=== PATIENT | female | born 1960 | race Caucasian/White ===

== ENCOUNTER 2023-03-03 02:27 | Day surgery (SDC) | payer BC, SELFPAY ==
[2023-02-22 13:58] VITALS: BMI 34.8
--- NOTE | 2023-02-22 14:00 | PC.NURSE ---
Report to the Outpatient Waiting Room, entrance under the green pavilion located off [facility], at time _0600_ on date _[id number]_. Planned Procedure Time: _0730_. Time changes happen often and if your time is changed the preop area will call you the afternoon before. - You and your visitor will be asked to self-screen and do not enter if you have any COVID symptoms. - A mask is optional within the hospital at this time. Patients may have clear liquids (water, carbonated beverages, clear teas, apple juice) until 3 hours prior to surgery with a maximum of 20 ounces. - No food from midnight until time of surgery Take the following medications with a SIP of water the morning of surgery: __None DO NOT STOP ANY OF YOUR OTHER PRESCRIPTION MEDICATIONS PRIOR TO SURGERY ?EXCEPT THE FOLLOWING Medications to discontinue per physician Stop Naproxen 02-24-2023, Stop fish oil [id number] Please no make-up, nail italian, hairspray, perfume, deodorant, or body powder the day of surgery. No jewelry (including any body piercings) or valuables the day of surgery, leave them at home. Please take a shower or bath the night before, or the morning of, surgery with an antibacterial soap. Wear comfortable, loose fitting clothing. - Jewelry must be removed prior to entering the operating room. Rings and piercings that are not removed may be cut off. - The hospital will not accept responsibility for valuables. - Please leave all valuables, including medications, at home the day of surgery. If you are going home after surgery, a licensed hire car driver must drive you home. - NO public transportation without another adult if you receive anesthesia. - We recommend that an adult stay with you for 24 hours following discharge. - We also recommend that you do not drive, make important decision, drink alcoholic beverages, or take any drugs that were not prescribed by your health care provider for at least 24 hours after your discharge time. Follow any additional instructions given to you from your surgeon. If you or anyone in your household have experienced Covid symptoms in the past week, please notify your surgeon or the nurse liaison at the phone number below for possible testing. Telephone instructions given to __Patient___and asked if any additional questions and then verbalized understanding. Patient advised to call surgeon office or pre surgery nurse liaison [phone] if any additional questions.
--- NOTE | 2023-03-02 12:23 | PM.IMHP ---
H&P: HPI History of Present Illness Date/Time: 03/02/23 12:23 Chief Complaint: Right foot pain Narrative: 63-year-old with right hallux rigidus and a toe stiffness. Pain with weight-bearing and shoe wear. Pain with daily activity. Unrelieved with cortisone injection, inserts and accommodative shoes. Presents for operative treatment. Review of Systems Constitutional: Constitutional: Denies fever(s) Eyes: Eyes: Denies blurry vision ENT: Reports Normal hearing present Cardiovascular: Cardiovascular: Denies chest pain and Denies dyspnea Respiratory: Respiratory: Denies dyspnea and Denies wheezing Gastrointestinal: Gastrointestinal: Denies abdominal pain Genitourinary: Genitourinary: Denies urinary urgency Musculoskeletal: Musculoskeletal: Reports as per HPI and Denies numbness Integumentary/Breasts: Skin/Breast: Denies changing lesions and Denies sores Neurologic: Reports Normal hearing present, Denies behavioral changes, Denies confusion, Denies numbness and Denies convulsions Psychiatric: Psychiatric: Denies behavioral changes, Denies confusion and Denies hallucinations Endocrine: Endocrine: Denies heat intolerance Hematologic/Lymphatic: Hematologic/Lymphatic: Denies easy bleeding Allergic/Immunologic: Allergic/Immunologic: Denies wheezing PMFSH Past Medical History Medical History Bilateral carpal tunnel syndrome (~2020) Hallux rigidus of right foot Kidney stones (~2020) Surgical History Surgical History H/O: hysterectomy (~2001) Hx of cholecystectomy (~2021) Social History Social History Smoking status: Never smoker Alcohol intake: current Drinks per week: 1 Substance use: never Living arrangements: with family Gender identity (if verbalized by the patient): Female Spiritual care concerns: No Meds Home Medications and Allergies Home Medications Medication Instructions Recorded Confirmed Type fluticasone propionate 50 1 spray intranasal BID 12/01/22 02/22/23 History mcg/actuation nasal spray,suspension mecobalamin (vitamin B12) 5,000 5,000 mcg PO DAILY 12/01/22 02/22/23 History mcg chewable tablet montelukast 10 mg tablet 10 mg PO DAILY 12/01/22 02/22/23 History (Singulair) pantoprazole 40 mg tablet,delayed 40 mg PO QAM 12/01/22 02/22/23 History release cetirizine 10 mg tablet (Zyrtec) 10 mg PO DAILY 02/22/23 02/22/23 History naproxen sodium 220 mg tablet 220 mg PO DAILY 02/22/23 02/22/23 History (Aleve) omega-3 fatty acids 2,000 mg PO DAILY 02/22/23 02/22/23 History Allergies Allergy/AdvReac Type Severity Reaction Status Date / Time sesame oil Allergy Rash Verified 02/22/23 13:44 Exam Const: Limitations: no limitations HENMT: Head: normal to inspection Ears: hearing grossly normal bilaterally Face/Nose/Sinus: Normal external nose present and normal facial exam Face and sinus: normal facial exam Mouth: Yes moist mucous membranes Teeth and gingiva: dentition normal Eyes: General: appearance normal, both eyes and all related structures Pupils: Equal, round and reactive pupils present EOM: EOMs intact bilaterally Neck: Neck: normal visual inspection Chest: Chest palpation & inspection: normal inspection of the chest Resp: Effort & Inspection: normal respiratory effort and able to speak in complete sentences Cardio: Jugular venous distension: no JVD Neuro: Cranial nerves: Yes Equal, round and reactive pupils present Extrem: Right upper extremity: normal to inspection Left upper extremity: normal to inspection Right lower extremity: ankle Details: normal to inspection, normal ROM ( dorsiflexion 5?, plantar flexion 45?, inversion 20?, eversion 10?) and other ( good stability all directions); no tenderness, no swelling and no ecchymosis and foot Details: abnorma
[2023-03-03] VITALS (9 sets, daily range): BP systolic 96–139; BP diastolic 55–86; PULSE 60–79; RESP 12–16; TEMP 37.4; O2SAT 94–100
--- NOTE | ~2023-03-03 | XR_ITS ---
EXAMINATION: XR surgery orthopedic DATE: 03/03/2023 09:01 INDICATION: Right foot arthrodesis TECHNIQUE: 3 fluoroscopic images of the right forefoot were obtained during procedure performed by Dr Ronny Smith. Radiologist was not present for the imaging or procedure. The amount of fluoroscopy time u sed during this procedure was 0.3 minutes. COMPARISON: 12/01/2022 FINDINGS: Interval right first metatarsophalangeal arthrodesis with compression screw and dorsal plate and scre w fixation. No fracture. 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 IMPRESSION: 1. Expected appearance post instrumented first metatarsophalangeal arthrodesis. Reviewed, dictated and finalized at location A.
[2023-03-03] MEDS: KETOROLAC 15 MG/ML VIAL (*BKC) IV PUSH (06:50)
[2023-03-03] MEDS: ACETAMINOPHEN 500 MG TABLET 1000 MG PO (06:50)
--- NOTE | 2023-03-03 07:07 | WPDANESEPPF ---
Anes - Initial Pre Proc Eval Procedure: Operation Date: 03/03/23 07:30 Proposed Procedures p Right Hallux Metatarsophalangeal Arthrodesis - Mason Smith MD Date/Time: 03/03/23 07:07 Surgeon: Mason Smith MD Pre Op Diagnosis: right hallux rigidus/arthritis, sesamoiditis Patient Data Age: 63 Gender: F Height: 1.57 m Weight: 85.8 kg Allergies Allergy/AdvReac Type Severity Reaction Status Date / Time sesame oil Allergy Difficulty Verified 03/03/23 07:06 Breathing Home Medications Medication Instructions Recorded Confirmed Type fluticasone propionate 50 1 spray intranasal BID 12/01/22 02/22/23 History mcg/actuation nasal spray,suspension mecobalamin (vitamin B12) 5,000 5,000 mcg PO DAILY 12/01/22 02/22/23 History mcg chewable tablet montelukast 10 mg tablet 10 mg PO DAILY 12/01/22 02/22/23 History (Singulair) pantoprazole 40 mg tablet,delayed 40 mg PO QAM 12/01/22 02/22/23 History release cetirizine 10 mg tablet (Zyrtec) 10 mg PO DAILY 02/22/23 02/22/23 History naproxen sodium 220 mg tablet 220 mg PO DAILY 02/22/23 02/22/23 History (Aleve) omega-3 fatty acids 2,000 mg PO DAILY 02/22/23 02/22/23 History Patient hx anesthesia problems: none Family hx anesthesia problems: none Results Review: All pre-operative results and documents have been reviewed as part of the pre-operative evaluation. [facility] Past Medical History Medical History Bilateral carpal tunnel syndrome (~2020) Hallux rigidus of right foot Kidney stones (~2020) Surgical History Surgical History H/O: hysterectomy (~2001) Hx of cholecystectomy (~2021) Social History Social History Smoking status: Never smoker Alcohol intake: current Drinks per week: 1 Substance use: never Living arrangements: with family Gender identity (if verbalized by the patient): Female Spiritual care concerns: No Anes - Eval Final PreProcedure Day of Procedure 03/03/23 07:07 Patient weight: obese Heart: regular rate and rhythm Lungs: clear to auscultation Airway: Mallampati scale class II Neurological: alert and oriented Last oral intake: >/= 8 hours ASA classification: III Emergent: no Anesthetic plan: proceed Anesthesia type and monitoring: general LMA and standard monitoring Results Review: All pre-operative results and documents have been reviewed as part of the pre-operative evaluation. Informed Consent: The patient's anesthetic plan and its attendant risks and benefits were discussed with the patient/family/POA. Questions were solicited and answers provided to the satisfaction of the patient/family/POA.
[2023-03-03] MEDS: SCOPOLAMINE 1.5 MG PATCH TRANSDERM (07:10)
[2023-03-03] MEDS: LACTATED RINGERS 1,000 ML 30 ML IV CONT (07:11)
--- NOTE | 2023-03-03 07:25 | WPDHPUPDATE1 ---
History and Physical Update Update Date/Time: 03/03/23 07:25 History and Physical has been reviewed, including an updated exam of the patient. There are NO changes in the patient's condition. Risks, benefits, and alternatives have been discussed and questions answered. Patient agrees to proceed with procedure.
[2023-03-03] MEDS: ceFAZolin 2 GM/D5W 50 ML 2 GM/50 ML BAG IVPB (07:48)
[2023-03-03] MEDS: BUPivacaine HCL 0.5% PF 30 ML VIAL 20 ML INFILTRATE (08:11)
--- NOTE | 2023-03-03 09:36 | W.PM.PROC2 ---
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 Has failed conservative treatment presents for operative treatment. Description of Procedure Patient identified in the preoperative holding. Informed consent given. Operative extremity marked. Patient received intravenous antibiotics. Patient brought to the operating room where underwent general anesthetic by anesthesia team. Positioned supine on operating room table. Time-out performed confirming the patient, site of the surgery and the plan. foot prepped and draped usual sterile surgical fashion using a ChloraPrep skin solution. Foot and ankle exsanguinated and a calf tourniquet inflated to 225 mmHg. Longitudinal incision made dorsum of hallux centered over metatarsophalangeal joint with a 15 blade knife. Hemostasis controlled electrocautery. Extensor hallucis tendon retracted laterally and a dorsal capsulotomy performed in line with the longitudinal skin incision. Soft tissue released off of the metatarsal to expose the joint. Extensive scar and fibrosis of the joint noted. Rongeur used to remove excess osteophytes. Reaming of the joint then performed with the Arthrex joint preparation reamers. Guide pin placed metatarsal and reaming performed size 18 mm. Guide pin then placed in the proximal phalanx and reaming performed to a size 18 mm. Wound thoroughly irrigated and debris removed. Plantar osteophytes carefully removed as well as the medial sesamoid. Joint then aligned and provisionally pinned. Alignment checked with image intensification. Fixation achieved with a dorsal locking plate with compression and a 4.0 mm lag screw. Image intensification confirmed final position. Wound irrigated and capsule closed with 3-0 Monocryl interrupted suture. Subcutaneous tissue repaired with 3-0 Monocryl interrupted suture and skin repaired with 4-0 nylon interrupted suture. Sterile dressing applied. The patient was then woken from anesthesia, extubated and taken to the recovery room in stable condition. All sponge, needle, instrument counts were correct at the end of the case. Implants Arthrex hallux metatarsophalangeal arthrodesis plate with screws, 4.0 mm cannulated screw x1 Estimated Blood Loss 5 Tourniquet Time 85 Drains No Packing No Pathology None sent Complications None Condition Stable Disposition PACU [facility] Billing Surgery - Charge Forward: Surgery Billing ([id number])
[2023-03-03] MEDS: oxyCODONE HCL (*CRX) 5 MG TAB IR PO (10:38)
== END 2023-03-03 11:18 | disposition home or self-care (01) ==
PROVIDERS: Visit Provider Orthopaedic Surgery
PROC: (CPT 28750; principal; 2023-03-03 07:30)
DX: M20.21 Hallux rigidus, right foot (principal); M25.871 Other specified joint disorders, right ankle and foot; M19.071 Primary osteoarthritis, right ankle and foot; Z79.1 Long term (current) use of non-steroidal anti-inflammatories (NSAID); E66.9 Obesity, unspecified; Z68.34 Body mass index [BMI] 34.0-34.9, adult
CPT/HCPCS: 28750; 99199; A9270; C1713; C1769; J0690; J1100; J1170; J1885; J2250; J2405; J2704; J3010; J7120

== ENCOUNTER 2024-01-23 12:25 | Outpatient (CLI) | payer BC, SELFPAY ==
--- NOTE | ~2024-01-23 | XR_ITS ---
Right foot Technique: AP, oblique, and lateral views were obtained. Clinical History: Pain Findings: No acute fracture or dislocation is seen. There is orthopedic fusion across the first metat arsophalangeal joint. Remaining joint spaces are intact. Soft tissues are unremarkable. Impression: No acute abnormality. Orthopedic fusion across the first MTP joint. Reviewed, dictated and finalized at location . Impression: No acute abnormality. Orthopedic fusion across the first MTP joint.
== END 2024-01-23 12:26 | disposition home or self-care (01) ==
LOC: ANHBWCIMG 12:27
PROVIDERS: Visit Provider Orthopaedic Surgery
DX: M79.671 Pain in right foot (principal)
CPT/HCPCS: 73630